=== PATIENT | female | born 1945 | race African-American/Black ===

== ENCOUNTER 2017-07-24 12:20 | Emergency (ER) | payer MEDICARE, OTHER ==
[~2017-07-24] VITALS: Ht 160 cm; Wt 77.1 kg
[2017-07-24 13:00] VITALS: BP 149/98
[2017-07-24 13:09] LABS: BASOPHILS % (AUTO) 1.6 % (0.0-2.0); EOSINOPHILS % (AUTO) 0.2 % (0.0-3.0); HEMOGLOBIN 12.6 G/DL (12.0-16.0); LYMPHOCYTES % (AUTO) 12.4 % (20.0-45.0); MEAN CORPUSCULAR VOLUME 84 FL (80-99); MONOCYTES % (AUTO) 7.1 % (1.0-10.0); NEUTROPHILS % (AUTO) 78.6 % (45.0-75.0); PLATELET COUNT 274 K/UL (150-450); RED BLOOD COUNT 4.52 M/UL (4.20-5.40); RED CELL DISTRIBUTION WIDTH 12.9 % (11.6-14.8); WHITE BLOOD COUNT 5.1 K/UL (4.8-10.8)
[2017-07-24] MEDS ORDERED: REVATIO20 MG ORAL (13:10)
[2017-07-24] MEDS ORDERED: AMLODIPINE BESY10 MG ORAL (13:10)
[2017-07-24] MEDS ORDERED: FUROSEMIDE20 M1 ORAL (13:10)
[2017-07-24] MEDS ORDERED: DEXILANT60 MG ORAL (13:10)
[2017-07-24] MEDS ORDERED: TRAMADOL HCL50 MG ORAL (13:10)
[2017-07-24] MEDS ORDERED: AMITRIPTYLINE25 MG ORAL (13:10)
[2017-07-24] MEDS ORDERED: ATORVASTATIN CA20 MG ORAL (13:10)
[2017-07-24] MEDS ORDERED: BACLOFEN10 MG ORAL (13:10)
[2017-07-24] MEDS ORDERED: GABAPENTIN400 MG ORAL (13:10)
[2017-07-24] MEDS ORDERED: LORATADINE10 M1 PO (13:10)
[2017-07-24] MEDS ORDERED: LISINOPRIL10 MG ORAL (13:10)
[2017-07-24 13:20] LABS: ANION GAP 9 mmol/L (5-15); BLOOD UREA NITROGEN 13 mg/dL (7-18); CALCIUM 9.3 MG/DL (8.5-10.1); CARBON DIOXIDE 28 MMOL/L (21-32); CHLORIDE 102 MMOL/L (98-107); CREATININE 0.9 MG/DL (0.55-1.30); POTASSIUM 4.1 MMOL/L (3.5-5.1); SODIUM 139 MMOL/L (136-145)
[2017-07-24 13:23] LABS: APPEARANCE,URINE CLEAR; BILIRUBIN, URINE NEGATIVE (NEGATIVE); COLOR,URINE PALE YELLOW; GLUCOSE, URINE (UA) NEGATIVE (NEGATIVE); KETONES,URINE NEGATIVE (NEGATIVE); LEUKOCYTE ESTERASE ,URINE NEGATIVE (NEGATIVE); NITRITE,URINE NEGATIVE (NEGATIVE); PH,URINE 6 (4.5-8.0); PROTEIN,URINE NEGATIVE (NEGATIVE); UROBILINOGEN,URINE NORMAL MG/DL (0.0-1.0)
[2017-07-24 13:35] LABS: ALANINE AMINOTRANSFERASE 31 U/L (12-78); ALBUMIN 3.6 G/DL (3.4-5.0); ALBUMIN/GLOBULIN RATIO 0.8 (1.0-2.7); ALKALINE PHOSPHATASE 124 U/L (46-116); ASPARTATE AMINO TRANSFERASE 29 U/L (15-37); BILIRUBIN,TOTAL 0.3 MG/DL (0.2-1.0); CKMB 1.2 NG/ML (0.0-3.6); CREATINE KINASE 379 U/L (26-308)
--- NOTE | 2017-07-24 13:49 | Diagnostic Imaging Report ---
EXAM: XR Chest, 1 View CLINICAL HISTORY: PAIN TECHNIQUE: Frontal view of the chest. COMPARISON: No relevant prior studies available. FINDINGS: Lungs: Mildly decreased lung volumes, likely related to shallow inspiration. Mild pulmonary vascular congestion. Pleural space: Unremarkable. No pneumothorax. Heart: The heart is borderline enlarged. Mediastinum: Midline retrocardiac/inferior mediastinal opacity. Bones/joints: Unremarkable. Tubes, lines and devices: EKG leads overlie the thorax. IMPRESSION: 1. Decreased lung volumes, likely related to shallow inspiration. 2. Mild pulmonary vascular congestion. 3. The heart is borderline enlarged. 4. Midline retrocardiac opacity. This is nonspecific and may represent a hiatal hernia.
--- NOTE | 2017-07-24 15:19 | Emergency Room Report ---
History of Present Illness General Chief Complaint: General Complaint Source: Patient Present Illness HPI Patient complains of generalized weakness. She states that she woke up this morning with the generalized weakness. She states that yesterday she noted she was having her back pain and was having sciatica-like symptoms down her right leg. She took multiple medications to include baclofen, tramadol, amitriptyline , and other pain medications. She states that this morning she felt a cramp in her right leg. She states that she has been fatigued and weak ever since. She states she has chronic back pain and sciatica and has had difficulty controlling her pain. She also has a hiatal hernia and is planned to undergo surgical repair of this in the future. She denies chest pain or shortness of breath. She denies fever or chills. She denies abdominal pain. She denies dysuria or hematuria. She has no other complaints. Allergies: Coded Allergies: No Known Allergies (Unverified , 07/24/17) Patient History Past Medical History: see triage record, DM, HTN, other - hiatal hernia Social History: Denies: smoking, alcohol use, drug use Reviewed Nursing Documentation: PMH: Agreed; PSxH: Agreed Nursing Documentation-PMH Hx Hypertension: Yes Hx Diabetes: Yes Review of Systems All Other Systems: negative except mentioned in HPI Physical Exam Vital Signs Date Time Temp Pulse Resp B/P (MAP) Pulse Ox O2 Delivery O2 Flow Rate FiO2 07/24/17 12:22 97.8 82 16 149/98 98 Room Air 97.9 Sp02 EP Interpretation: reviewed, normal General Appearance: no apparent distress, alert, GCS 15, non-toxic Head: normocephalic, atraumatic Eyes: bilateral eye normal inspection, bilateral eye PERRL ENT: hearing grossly normal, normal pharynx, no angioedema, normal voice Neck: full range of motion, supple/symm/no masses Respiratory: chest non-tender, lungs clear, normal breath sounds, speaking full sentences Cardiovascular #1: regular rate, rhythm, no edema Gastrointestinal: normal bowel sounds, non tender, soft, non-distended, no guarding, no rebound Rectal: deferred Musculoskeletal: back normal, normal range of motion, other - TTP L. lower paraspinal m. Neurologic: alert, oriented x3, responsive, motor strength/tone normal, sensory intact, speech normal Psychiatric: judgement/insight normal, memory normal, mood/affect normal, no suicidal/homicidal ideation Skin: normal color, no rash, warm/dry, well hydrated Medical Decision Making Diagnostic Impression: Primary Impression: Generalized weakness Additional Impressions: Chronic back pain Medication side effects ER Course This patient has nonspecific complaints. She took a cocktail of medications prior to bed yesterday for her chronic back pain. This included narcotics, muscle relaxants, gabapentin, amitriptyline. I suspect that this patient is having side effects of the cocktail of medications that she took last night. I did obtain basic labs to include CBC, CMP and urinalysis. There are no significant abnormalities. Overall, the patient is well-appearing and normal examination. I did give the patient a Lidoderm patch and will prescribe this for her as an attempt at helping this patient better manage her chronic back pain. She is also instructed to obtain physical therapy consultation from her primary care physician. At this time, I did not identify an emergency medical condition. Patient was given close return precautions and follow-up instructions. EKG Diagnostic Results Rate: normal Rhythm: NSR ST Segments: no acute changes Rhythm Strip Diag. Results EP Interpretation: yes Rate: 80's Rhythm: NSR, no PVC's, no ectopy Chest X-Ray Diagnostic Results Chest X-Ray Diagnostic Results : Chest X-Ray Ordered: Yes # of Views/Limited/Complete: 1 View Indication: Other EP Interpretation: Yes Interpretation: no consolidation, no effusion, no pneumothorax, no acute cardiopulmonary disease, other - cardiomegaly, hiatal hernia Impression: No acute disease Last Vital Signs Date Time Temp Pulse Resp B/P (MAP) Pulse Ox O2 Delivery O2 Flow Rate FiO2 07/24/17 13:00 97.9 16 149/98 98 Room Air 97.9 07/24/17 12:22 82 Status: improved Disposition: HOME, SELF-CARE Condition: Improved Referrals: NOT CHOSEN SERGIO/,REFERRING (PCP) ALVINA TATUM D.O. July 24, 2017 15:19
[2017-07-24] MEDS ORDERED: LIDODERM700 M1 TOPIC (15:20)
[2017-07-24 16:00] VITALS: BP 132/90
--- NOTE | 2017-07-28 14:57 | Cardiology Report ---
APPROVED REPORT EKG Measurement Heart [id number] [id number] Normal sinus rhythm with sinus arrhythmia Moderate voltage criteria for LVH, may be normal variant ST elevation, consider early repolarization, pericarditis, or injury Abnormal ECG
== END 2017-07-24 16:00 | disposition home or self-care (01) ==
LOC: EDBD 12:20 → EMR 13:32
DX: R53.1 Weakness (principal); G89.29 Other chronic pain; K44.9 Diaphragmatic hernia without obstruction or gangrene; I10 Essential (primary) hypertension; E11.9 Type 2 diabetes mellitus without complications
CPT/HCPCS: 36415; 71045; 80053; 81003; 82550; 82553; 82962; 84484; 85025; 85610; 85730; 93005; 96374; 99283

== ENCOUNTER 2018-08-24 21:43 | Emergency (ER) | payer MEDICARE, OTHER ==
[~2018-08-24] VITALS: Ht 157.5 cm; Wt 78.5 kg
[~2018-08-24 21:43] MED LIST: AMITRIPTYLINE25 MG ORAL; AMLODIPINE BESY10 MG ORAL; ATORVASTATIN CA20 MG ORAL; BACLOFEN10 MG ORAL; DEXILANT60 MG ORAL; FUROSEMIDE20 M1 ORAL; GABAPENTIN400 MG ORAL; LIDODERM700 M1 TOPIC; LISINOPRIL10 MG ORAL; LORATADINE10 M1 PO; REVATIO20 MG ORAL; TRAMADOL HCL50 MG ORAL
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
[2018-08-24] MEDS ORDERED: Ketorolac 30mg Inj IV ONE (22:45)
[2018-08-24 23:14] LABS: BASOPHILS % (AUTO) 1.4 % (0.0-2.0); HEMATOCRIT 35.2 % (37.0-47.0); HEMOGLOBIN 11.6 G/DL (12.0-16.0); MEAN CORPUSCULAR VOLUME 83 FL (80-99); MONOCYTES % (AUTO) 8.6 % (1.0-10.0); NEUTROPHILS % (AUTO) 55.1 % (45.0-75.0); PLATELET COUNT 258 K/UL (150-450); RED BLOOD COUNT 4.25 M/UL (4.20-5.40); RED CELL DISTRIBUTION WIDTH 11.5 % (11.6-14.8); WHITE BLOOD COUNT 5.9 K/UL (4.8-10.8)
[2018-08-24 23:27] LABS: ANION GAP 9 mmol/L (5-15); BLOOD UREA NITROGEN 15 mg/dL (7-18); CALCIUM 8.8 MG/DL (8.5-10.1); CARBON DIOXIDE 27 MMOL/L (21-32); CHLORIDE 108 MMOL/L (98-107); CREATININE 0.8 MG/DL (0.55-1.30); POTASSIUM 3.6 MMOL/L (3.5-5.1); SODIUM 144 MMOL/L (136-145)
[2018-08-24 23:30] VITALS: BP 124/79
[2018-08-24 23:31] LABS: ALANINE AMINOTRANSFERASE 28 U/L (12-78); ALBUMIN/GLOBULIN RATIO 0.8 (1.0-2.7); ALKALINE PHOSPHATASE 101 U/L (46-116); ASPARTATE AMINO TRANSFERASE 23 U/L (15-37); BILIRUBIN,TOTAL 0.1 MG/DL (0.2-1.0)
[2018-08-25] MEDS ORDERED: ALBUTEROL SULF8.5 GM INH (00:04)
[2018-08-25] MEDS ORDERED: TRAMADOL HCL50 MG ORAL (00:04)
[2018-08-25] MEDS ORDERED: VOLTAREN100 G1 TP (00:04)
[2018-08-25 00:25] VITALS: BP 124/79
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
--- NOTE | 2018-08-25 15:24 | Cardiology Report ---
APPROVED REPORT EKG Measurement Heart [id number] [id number] Normal sinus rhythm Moderate voltage criteria for LVH, may be normal variant Borderline ECG
== END 2018-08-25 00:39 | disposition home or self-care (01) ==
LOC: EMR 22:15
DX: M54.2 Cervicalgia (principal); R07.9 Chest pain, unspecified; E11.9 Type 2 diabetes mellitus without complications; I10 Essential (primary) hypertension; M79.602 Pain in left arm
CPT/HCPCS: 36415; 70450; 71250; 72125; 74176; 80053; 84484; 85025; 93005; 96374; 99284; J1885

== ENCOUNTER 2018-12-19 11:23 | Inpatient (IN) | payer MEDICARE, OTHER ==
[~2018-12-19] VITALS: Ht 157.5 cm; Wt 82.1 kg
[~2018-12-19 11:23] MED LIST changes: +ALBUTEROL SULF8.5 GM INH; +VOLTAREN100 G1 TP
--- NOTE | 2018-12-19 11:31 | NUR ---
ED Nurse Note: pt presents to ED s/p fall about 30 min [employer]. pt reports feeling dizzy and nauseated before feeling her leg "go limp." her cousin was with her at the time and helped her to the ground, she denies sustaining any injuries or hitting her head but did note that she briefly "blacked out." Pt takes lopressor 20 mg for HTN which she did take this AM. Pt states that 2 days ago she did a sleep study and last night experienced some tongue swelling but that it did not obsturct her breathing. pt was able to transfer from wheelchair to bed with some assistance and denies any pain right now, just that she "feels sick."
[2018-12-19 12:00] VITALS: BP 136/77
[2018-12-19 12:07] LABS: EOSINOPHILS % (AUTO) 0.4 % (0.0-3.0); HEMATOCRIT 43.4 % (37.0-47.0); HEMOGLOBIN 14.2 G/DL (12.0-16.0); LYMPHOCYTES % (AUTO) 7.5 % (20.0-45.0); MEAN CORPUSCULAR VOLUME 87 FL (80-99); MONOCYTES % (AUTO) 6.4 % (1.0-10.0); NEUTROPHILS % (AUTO) 84.7 % (45.0-75.0); PLATELET COUNT 268 K/UL (150-450); RED BLOOD COUNT 5.01 M/UL (4.20-5.40); RED CELL DISTRIBUTION WIDTH 12.1 % (11.6-14.8); WHITE BLOOD COUNT 6.3 K/UL (4.8-10.8)
--- NOTE | 2018-12-19 12:08 | NUR ---
ED Nurse Note: nurse was able to assist pt onto bed beckwith. pt was able to void 100 mL of yellow urine
[2018-12-19 12:16] LABS: ANION GAP 5 mmol/L (5-15); BLOOD UREA NITROGEN 9 mg/dL (7-18); CALCIUM 8.6 MG/DL (8.5-10.1); CARBON DIOXIDE 30 MMOL/L (21-32); CHLORIDE 105 MMOL/L (98-107); CREATININE 0.8 MG/DL (0.55-1.30); SODIUM 140 MMOL/L (136-145)
[2018-12-19 12:32] LABS: ALANINE AMINOTRANSFERASE 33 U/L (12-78); ALBUMIN 3.5 G/DL (3.4-5.0); ALBUMIN/GLOBULIN RATIO 0.7 (1.0-2.7); ALKALINE PHOSPHATASE 108 U/L (46-116); ASPARTATE AMINO TRANSFERASE 29 U/L (15-37); BILIRUBIN,TOTAL 0.5 MG/DL (0.2-1.0); CKMB 3.3 NG/ML (0.0-3.6); CREATINE KINASE 355 U/L (26-308)
[2018-12-19 13:00] LABS: APPEARANCE,URINE CLEAR; BILIRUBIN, URINE NEGATIVE (NEGATIVE); COLOR,URINE PALE YELLOW; GLUCOSE, URINE (UA) NEGATIVE (NEGATIVE); KETONES,URINE NEGATIVE (NEGATIVE); LEUKOCYTE ESTERASE ,URINE NEGATIVE (NEGATIVE); NITRITE,URINE NEGATIVE (NEGATIVE); PH,URINE 7 (4.5-8.0); PROTEIN,URINE NEGATIVE (NEGATIVE); UROBILINOGEN,URINE NORMAL MG/DL (0.0-1.0)
--- NOTE | 2018-12-19 13:16 | NUR ---
ED Nurse Note: Pt used bedpan x 3, light deepak urine noted. Pt has no difficulty urinating. Sister at bedside. No sign of acute distress.
[2018-12-19 13:38] VITALS: BP 149/75
--- NOTE | 2018-12-19 13:39 | Emergency Room Report ---
History of Present Illness General Chief Complaint: Multiple Trauma/Fall Source: Patient Present Illness HPI Patient presents with syncopal episode Patient was standing up to go to latter-day when she felt lightheaded dizzy and essentially had a full syncopal episode Denies any headache or focal weakness denies any chest pain patient has had a recent sleep study Otherwise denies any change in medications denies any visual changes Denies any recent travel or trauma Allergies: Coded Allergies: No Known Allergies (Unverified , 07/24/17) Patient History Past Medical History: see triage record Last Menstrual Period: n/a Reviewed Nursing Documentation: PMH: Agreed; PSxH: Agreed Nursing Documentation-PMH Hx Hypertension: Yes - HTN Hx Diabetes: Yes - Type 2 Review of Systems All Other Systems: negative except mentioned in HPI Physical Exam Vital Signs Date Time Temp Pulse Resp B/P (MAP) Pulse Ox O2 Delivery O2 Flow Rate FiO2 12/19/18 11:29 98.2 70 18 166/87 (113) 100 Room Air Sp02 EP Interpretation: reviewed, normal General Appearance: well appearing, no apparent distress Head: normocephalic, atraumatic Eyes: bilateral eye PERRL, bilateral eye EOMI ENT: hearing grossly normal, normal pharynx, TMs + canals normal, uvula midline Neck: full range of motion, supple, no meningismus, no bony tend Respiratory: lungs clear, normal breath sounds, no rhonchi, no respiratory distress, no retraction, no accessory muscle use Cardiovascular #1: normal peripheral pulses, regular rate, rhythm, no edema, no gallop, no JVD, no murmur Gastrointestinal: normal bowel sounds, non tender, soft, no mass, no organomegaly, non-distended, no guarding, no hernia, no pulsatile mass, no rebound Genitourinary: no CVA tenderness Musculoskeletal: normal inspection Neurologic: oriented x3, responsive, historian dramatic arts III-XII nml as tested, motor strength/ tone normal, sensory intact Psychiatric: mood/affect normal Lymphatic: normal inspection, no adenopathy Medical Decision Making Diagnostic Impression: Primary Impression: Syncope ER Course Patient is a fairly complex patient with multiple differential to consideration including but not limited to cardiac cardiopulmonary and vascular emergencies Patient's blood work at this time is at baseline levels EKG shows nonspecific findings otherwise no obvious ST elevations Patient does not meet criteria for a CT imaging of the brain Is admitted for further inpatient care Labs Test 12/19/18 11:55 12/19/18 12:50 White Blood Count 6.3 K/UL (4.8-10.8) Red Blood Count 5.01 M/UL (4.20-5.40) Hemoglobin 14.2 G/DL (12.0-16.0) Hematocrit 43.4 % (37.0-47.0) Mean Corpuscular Volume 87 FL (80-99) Mean Corpuscular Hemoglobin 28.4 PG (27.0-31.0) Mean Corpuscular Hemoglobin Concent 32.8 G/DL (32.0-36.0) Red Cell Distribution Width 12.1 % (11.6-14.8) Platelet Count 268 K/UL (150-450) Mean Platelet Volume 6.1 FL (6.5-10.1) Neutrophils (%) (Auto) 84.7 % (45.0-75.0) Lymphocytes (%) (Auto) 7.5 % (20.0-45.0) Monocytes (%) (Auto) 6.4 % (1.0-10.0) Eosinophils (%) (Auto) 0.4 % (0.0-3.0) Basophils (%) (Auto) 1.0 % (0.0-2.0) Sodium Level 140 MMOL/L (136-145) Potassium Level 4.0 MMOL/L (3.5-5.1) Chloride Level 105 MMOL/L (98-107) Carbon Dioxide Level 30 MMOL/L (21-32) Anion Gap 5 mmol/L (5-15) Blood Urea Nitrogen 9 mg/dL (7-18) Creatinine 0.8 MG/DL (0.55-1.30) Estimat Glomerular Filtration Rate mL/min (>60) Glucose Level 146 MG/DL (74-106) Calcium Level 8.6 MG/DL (8.5-10.1) Total Bilirubin 0.5 MG/DL (0.2-1.0) Aspartate Amino Transf (AST/SGOT) 29 U/L (15-37) Alanine Aminotransferase (ALT/SGPT) 33 U/L (12-78) Alkaline Phosphatase 108 U/L (46-116) Total Creatine Kinase 355 U/L (26-308) Creatine Kinase MB 3.3 NG/ML (0.0-3.6) Creatine Kinase MB Relative Index 0.9 Troponin I 0.000 ng/mL (0.000-0.056) Total Protein 8.4 G/DL (6.4-8.2) Albumin 3.5 G/DL (3.4-5.0) Globulin 4.9 g/dL Albumin/Globulin Ratio 0.7 (1.0-2.7) Lipase 189 U/L (73-393) Urine Color Pale yellow Urine Appearance Clear Urine pH 7 (4.5-8.0) Urine Specific [place] 1.005 (1.005-1.035) Urine Protein Negative (NEGATIVE) Urine Glucose (UA) Negative (NEGATIVE) Urine Ketones Negative (NEGATIVE) Urine Blood 2+ (NEGATIVE) Urine Nitrite Negative (NEGATIVE) Urine Bilirubin Negative (NEGATIVE) Urine Urobilinogen Normal MG/DL (0.0-1.0) Urine Leukocyte Esterase Negative (NEGATIVE) Urine RBC 0-2 /HPF (0 - 2) Urine WBC 0 /HPF (0 - 2) Urine Squamous Epithelial Cells None /LPF (NONE/OCC) Urine Bacteria None /HPF (NONE) EKG Diagnostic Results Rate: normal Rhythm: NSR ST Segments: other - Nonspecific ST and T wave changes Rhythm Strip Diag. Results EP Interpretation: yes Rate: 77 Rhythm: NSR, no PVC's, no ectopy Chest X-Ray Diagnostic Results Chest X-Ray Diagnostic Results : Chest X-Ray Ordered: Yes # of Views/Limited/Complete: 1 View Indication: Chest Pain EP Interpretation: Yes Interpretation: no consolidation, no effusion, no pneumothorax Impression: No acute disease Electronically Signed by: Isabella Domínguez DO Last Vital Signs Date Time Temp Pulse Resp B/P (MAP) Pulse Ox O2 Delivery O2 Flow Rate FiO2 12/19/18 12:00 98.2 67 15 136/77 95 Room Air Status: improved Disposition: ADMITTED INPATIENT Condition: Improved Referrals: NOT CHOSEN IPA/,REFERRING (PCP) Isabella Domínguez DO Dec 19, 2018 13:39
[2018-12-19 14:00] VITALS: BP 149/81
--- NOTE | 2018-12-19 14:10 | NUR ---
ED Nurse Note: pt report given to Betzaida MCNULTY. Bed that pt will be admitted to is not yet ready. RN will call back when ready for pt to be transported upstairs to bed 243-1.
[2018-12-19] MEDS ORDERED: traMADol 50mg tab ORAL PRN (14:15)
[2018-12-19] MEDS ORDERED: Miralax 17gm pkt ORAL PRN (14:15)
[2018-12-19] MEDS ORDERED: Nitroglycerin Subl 0.4mg tab SL PRN (14:15)
[2018-12-19] MEDS ORDERED: Albuterol 90mcg Inhaler 8gm INH PRN (14:15)
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
[2018-12-19] MEDS: Aspirin Baby 81mg ORAL SCH (15:50)
[2018-12-19] MEDS: traMADol 50mg tab ORAL SCH (15:53)
[2018-12-19 16:51] VITALS: BP 144/79
[2018-12-19] MEDS: Revatio 20mg tab ORAL SCH (17:36)
[2018-12-19] MEDS: NovoLOG Insulin Flexpen SUBQ SCH ×2 (17:37→20:55)
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
--- NOTE | 2018-12-19 19:14 | NUR ---
HAND-OFF: Report given to RIVER MCNULTY.
--- NOTE | 2018-12-19 19:15 | NUR ---
NURSE NOTES: Received report from HAMLET Huston. Patient is alert and oriented x4. No acute distress/SOB noted. Patient denies any pain/discomfort at this time. She is on room air. Daughter is at the bedside. Will continue plan of care.
[2018-12-19] MEDS: Heparin 5000 units/ml inj SUBQ SCH (20:40)
[2018-12-19] MEDS ORDERED: Atorvastatin 20mg tab ORAL SCH (21:00)
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
--- NOTE | 2018-12-19 22:11 | NUR ---
NURSE NOTES: Received report from HAMLET Ferguson. Patient was transferred from SDU to telemetry without any incident. Tele box on, SR on the monitor. Vital signs stable. No skin issues. Belongings list checked with transferring RN. Patient is awake, resting comfortably. A/Ox4. Denies pain at this time. No signs of acute cardiorespiratory distress noted. Checked IV site and flushed. No erythema, bleeding or infiltration noted. Able to make needs known. Ambulates with assistance. SCDs placed on bilateral legs. Bed at lowest position, brakes on, siderailsx3. Call light within reach. Will continue to monitor.
[2018-12-20] MEDS: traMADol 50mg tab ORAL SCH ×4 (01:00→18:06)
--- NOTE | 2018-12-20 02:45 | Consultation ---
DATE OF CONSULTATION: 12/19/2018 CARDIOLOGY CONSULTATION CONSULTING PHYSICIAN: Maurilio Cormier M.D. REFERRING PHYSICIAN: Silver Mei M.D. REASON FOR CONSULTATION: Syncope. HISTORY OF PRESENT ILLNESS: This is a 73-year-old female. She has had difficulty with swallowing for the past few months. Solid food gets stuck in her throat, but she has been able to eat a normal amount. Last week, she had an endoscopy although she does not know the results yet. This morning, she got up to go to quaker. She did not eat that morning, but that is not unusual for her. She felt somewhat weak and lightheaded and when she got up to get dressed, she apparently passed out completely. She called a friend after she woke up and did not have any sequelae noted thereafter. The patient did have some nausea and vomiting earlier this morning. States that that may have precipitated her dizziness. PAST MEDICAL HISTORY: Includes hypertension, type 2 diabetes mellitus, and history of pulmonary hypertension. ALLERGIES: None known. MEDICATIONS: Medications prior to admission, reviewed and reconciled. FAMILY HISTORY: Noncontributory. SOCIAL HISTORY: Negative for smoking, alcohol, or substance abuse. REVIEW OF SYSTEMS: A 10-point review of systems performed. All systems negative other than noted above. PHYSICAL EXAMINATION: VITAL SIGNS: Initial blood pressure 166/87, heart rate 70, respiratory rate 18, and afebrile. Presently, blood pressure 144/79, heart rate 68, respiratory rate 20. Monitored rhythm sinus. GENERAL: Well-appearing. HEENT: Conjunctivae pink. Sclerae are anicteric. Oropharynx clear. Mucous membranes moist. NECK: Supple. Jugular venous pressure normal. No adenopathy. LUNGS: Clear. CARDIAC: Regular rhythm and rate. Normal S1, S2 with no murmur. ABDOMEN: Soft and nontender. There is no guarding or rebound. EXTREMITIES: Without edema. NEUROLOGIC: Reveals no focal deficits. LABORATORY DATA: An echocardiogram revealed normal ejection fraction, mild concentric hypertrophy, mild tricuspid regurgitation, normal PA systolic pressure estimate. EKG revealed sinus rhythm with nonspecific ST changes. Labs notable for white count 6.3, hemoglobin 14.2. Chemistry panel within normal limits. Glucose 146. IMPRESSION: 1. Vasovagally mediated syncopal episode, possibly precipitated by nausea and vomiting earlier in the morning. Consideration for orthostatic component due to her medications such as Revatio must be considered as well. Low suspicion for cardiac arrhythmia or acute cerebrovascular event. 2. Hypertensive heart disease. 3. History of pulmonary hypertension although not presently noted on echocardiogram. 4. Dysphagia to solid foods. 5. History of type 2 diabetes mellitus. PLAN: 1. Cardiac monitoring. 2. Check orthostatic blood pressures. 3. Contact inner tube inserter tomorrow to obtain results of recent GI workup. 4. We will follow and make further recommendations based on preliminary results noted above. Maurilio Cormier M.D. DR: Rosana JOB#: [id number] CC:
--- NOTE | 2018-12-20 03:20 | NUR ---
NURSE NOTES: Resting throughout the night. No significant change of condition. Will continue to monitor.
[2018-12-20] MEDS: NovoLOG Insulin Flexpen SUBQ SCH ×3 (05:30→17:21)
--- NOTE | 2018-12-20 07:05 | NUR ---
NURSE NOTES: Received report from HAMLET Wilson. Patient is awake, resting comfortably. A/Ox4. Denies pain at this time. No signs of acute cardiorespiratory distress noted. Patient is breathing even and unlabored. Checked IV site and flushed. No erythema, bleeding or infiltration noted. Able to make needs known. Ambulates with assistance. SCDs placed on bilateral legs. Bed at lowest position, brakes on, siderailsx3. Call light within reach. Will continue to monitor.
--- NOTE | 2018-12-20 07:38 | NUR ---
HAND-OFF: Report given to HAMLET Arvizu. Plan of care endorsed.
[2018-12-20 07:47] LABS: BASOPHILS % (AUTO) 1.2 % (0.0-2.0); EOSINOPHILS % (AUTO) 3.1 % (0.0-3.0); HEMATOCRIT 38.6 % (37.0-47.0); HEMOGLOBIN 12.8 G/DL (12.0-16.0); MEAN CORPUSCULAR VOLUME 87 FL (80-99); MONOCYTES % (AUTO) 13.2 % (1.0-10.0); NEUTROPHILS % (AUTO) 49.6 % (45.0-75.0); PLATELET COUNT 268 K/UL (150-450); RED BLOOD COUNT 4.46 M/UL (4.20-5.40); RED CELL DISTRIBUTION WIDTH 12.1 % (11.6-14.8); WHITE BLOOD COUNT 4.1 K/UL (4.8-10.8)
[2018-12-20 08:00] VITALS: BP 133/86
[2018-12-20 08:18] LABS: ANION GAP 2 mmol/L (5-15); BLOOD UREA NITROGEN 7 mg/dL (7-18); CALCIUM 8.6 MG/DL (8.5-10.1); CARBON DIOXIDE 28 MMOL/L (21-32); CHLORIDE 105 MMOL/L (98-107); CHOLESTEROL 132 MG/DL (< 200); CREATININE 0.9 MG/DL (0.55-1.30); HDL CHOLESTEROL 42 MG/DL (40-60); POTASSIUM 3.2 MMOL/L (3.5-5.1); SODIUM 135 MMOL/L (136-145); TRIGLYCERIDES 87 MG/DL (30-150)
[2018-12-20] MEDS: Aspirin Baby 81mg ORAL SCH (08:46)
[2018-12-20] MEDS: Heparin 5000 units/ml inj SUBQ SCH (08:56)
[2018-12-20] MEDS: Revatio 20mg tab ORAL SCH (09:00)
[2018-12-20] MEDS ORDERED: Lisinopril 10mg tab ORAL SCH (09:00)
[2018-12-20] MEDS ORDERED: Diclofenac 1% Gel 100gm TOPIC SCH ×2 (09:00)
--- NOTE | 2018-12-20 10:28 | NUR ---
NURSE NOTES: Paged Dr. Mei about potassium 3.2. Awaiting orders.
--- NOTE | 2018-12-20 10:29 | Diagnostic Imaging Report ---
APPROVED REPORT CPT Code: 08327 Vascular Symptoms Syncope Doppler Spectral Velocity Analysis RightLeft BILATERAL: CCA/BULB - Imaging reveals irregular, minimal plaque in right (5-10%) bulb the internal and external carotid arteries. The Doppler spectral flow analysis is within normal limits throughout the internal and external carotid arteries. SUBCLAVIAN/VERTEBRAL - The subclavian and vertebral arteries are patent, without evidence of stenosis or steal.
[2018-12-20 12:00] VITALS: BP 143/87
[2018-12-20] MEDS ORDERED: Revatio 20mg tab ORAL SCH (15:00)
--- NOTE | 2018-12-20 16:10 | Diagnostic Imaging Report ---
Indication: Chest pain Technique: One view of the chest Comparison: 07/24/2017 Findings: What is presumably bowel contrast is seen in left upper quadrant colonic diverticula. The lungs and pleural spaces are grossly clear. The heart size is normal. Impression: No definite acute process
--- NOTE | 2018-12-20 18:40 | NUR ---
Home Discharge: Patient is being discharged from medical care. Awake, alert and oriented x4. Patient signed discharge papers and belonging paper. Daughter at bedside. Patient received prescription from Dr. Mei. All medical devices such as IV, bus driver/monitor, and ID band were removed. Patient left on wheel chair with all personal belongings to private vehicle driven by daughter.
--- NOTE | 2018-12-21 02:45 | Progress Note ---
DATE: 12/20/2018 CARDIOLOGY PROGRESS NOTE SUBJECTIVE: No dizziness. No lightheadedness. No loss of consciousness. Monitored rhythm, sinus. OBJECTIVE: VITAL SIGNS: Blood pressure 143/87, heart rate 65, respiratory rate 18. LUNGS: Clear. CARDIAC: Regular. ABDOMEN: Soft. EXTREMITIES: No edema. LABORATORY AND DIAGNOSTIC DATA: GI workup reviewed from recent workup at [facility]. The patient has had a prior bariatric intervention and now has ring . Labs, white count 4.1, hemoglobin 12.8. Potassium 3.2. Troponin negative. LDL cholesterol 85. TSH 0.72. IMPRESSION: 1. Vasovagally mediated orthostatic syncope. 2. Hypokalemia. 3. Hypertension, controlled. PLAN: 1. Replace potassium. 2. Continue current cardiovascular medications. 3. Stable for outpatient followup from cardiovascular standpoint. 4. No additional cardiovascular interventions or therapies are presently indicated. Maurilio Cormier M.D. DR: JOSHUA JOB#: [id number] CC:
--- NOTE | 2018-12-21 04:30 | History and Physical Report ---
DATE OF ADMISSION: 12/19/2018 PERTINENT HISTORY: The patient admitted for syncope. HISTORY OF PRESENT ILLNESS: The patient is a 73-year-old lady with with history of gastroesophageal reflux status post laparoscopic hiatal hernia repair, Kitty gastroplasty, and Toupet fundoplication in January 2018 at [facility]. She had a recent upper GI, stricture, and EGD with dilation apparently was to be scheduled. She had a recent swallow study at [facility] which is reviewed and on the chart. 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 ALLERGIES: None known. HOME MEDICATIONS: Include albuterol inhalation, amitriptyline, amlodipine, atorvastatin, baclofen, Dexilant, Voltaren gel, furosemide, gabapentin, lidocaine patch, lisinopril, loratadine, Revatio, tramadol. HABITS: She is a nondrinker and nonsmoker. PAST SURGICAL HISTORY: Hiatal hernia, left arm possibly ulnar nerve repair, hysterectomy, cataracts bilaterally. SYSTEM REVIEW: HEAD, EYES, EARS, NOSE, AND THROAT: Vision corrective with eyeglasses. Hearing is good. ENDOCRINE: Obesity and diabetes as above. PULMONARY: History of taking Revatio, apparently mild pulmonary hypertension on echo in the past. CARDIAC: See history of present illness. GASTROINTESTINAL: See history of present illness. She had choking on her food intermittently. GENITOURINARY: No dysuria or hematuria. NEUROLOGIC: No CVA or seizures. . PHYSICAL EXAMINATION: GENERAL: The patient is an elderly patient, alert, obese lady, in no acute distress. VITAL SIGNS: Temperature 981, pulse 81, respirations 18, blood pressure 143/87. Earlier orthostatic blood pressures were negative. HEAD, EYES, EARS, NOSE, AND THROAT: Sclerae are nonicteric. Ocular motions intact in all directions. Oral mucosa moist. NECK: No adenopathy. LUNGS: Clear. HEART: Regular rhythm. I hear no murmur. ABDOMEN: Obese and soft. No organomegaly. EXTREMITIES: No edema, cyanosis, or clubbing. There are degenerative changes in the knees and hands. NEUROLOGIC: She is alert and oriented with clear speech. Cranial nerves are intact. No focal weakness. IMPRESSION: 1. Syncope provoked by choking sensation and this is likely vasovagal episode secondary to her underlying hiatal hernia, reflux, and some stenosis that are noted in the past. 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 2. Obesity 3. Diabetes. PLAN: 1. The patient will be observed on telemetry for any arrhythmia. 2. Check orthostatics, if negative we will discharge her. Silver Mei M.D. DR: [place] JOB#: [id number] CC:
--- NOTE | 2018-12-21 13:15 | Discharge Summary ---
DATE OF ADMISSION: 12/19/2018 DATE OF DISCHARGE: 12/20/2018 PERTINENT HISTORY: The patient had an episode of syncope after sensation of choking. PERTINENT PHYSICAL FINDINGS: See the admission History and Physical, no changes. COURSE IN THE HOSPITAL: The patient was observed on telemetry. No arrhythmias. No orthostatic hypotension. She had a mild drop in potassium from 4 to 3.2, was given KCl replacement. Troponins were negative. She had no cardiac symptoms. In retrospect, she had vasovagal syncope, post-sensation of choking. Exam was stable and she was discharged home in stable condition. FINAL DIAGNOSES: 1. Syncope likely vasovagal. 2. History of surgery for hiatal hernia with fundoplication and recurrence of heartburn and dysphagia. 3. Hypertension. 4. Diabetes. 5. On medications for pulmonary hypertension. 6. Obesity. 7. Obstructive sleep apnea. DISCHARGE DISPOSITION: Home on her prior to admission medications. I have discussed with her eating slowly and following up on all of the above medical problems. She will continue her home medications and follow up closely with her prior to admission medications and prior doctors and she will see Dr. Mei in the office should she wished to do so. Silver Mei M.D. : KEIKO JOB#: [id number] CC:
--- NOTE | 2018-12-21 13:26 | Cardiology Report ---
APPROVED REPORT EXAM: Two-dimensional and M-mode echocardiogram with Doppler and color Doppler. INDICATION Syncope M-Mode DIMENSIONS IVSd1.4 (0.7-1.1cm)Left Atrium (MM)2.3 (1.6-4.0cm) LVDd5.4 (3.5-5.6cm)Aortic Root2.7 (2.0-3.7cm) PWd1.0 (0.7-1.1cm)Aortic Cusp Exc.1.6 (1.5-2.0cm) IVSs1.5 cm LVDs3.6 (2.5-4.0cm) PWs1.6 cm Normal left ventricular chamber size, systolic function and wall motion . Left ventricular ejection fraction estimated to be 60-65%. No left ventricular hypertrophy . All other cardiac chamber sizes are within normal limits. Focal aortic valve sclerosis with adequate cusp excursion. Thickened mitral valve leaflets with normal excursion. Mitral annulus and aortic root calcification. Normal pulmonic valve structure. Normal tricuspid valve structure. IVC at 1.7 cm with physiologic collapse . A color flow and spectral Doppler study was performed and revealed: No aortic regurgitation.. Trace mitral regurgitation. Mitral diastolic velocities suggest reduced left ventricular relaxation c/w mild LV diastolic dysfunction (Grade I ) Mild tricuspid regurgitation. Tricuspid systolic velocities suggests peak right ventricular systolic pressure of 30mmHg,.
== END 2018-12-20 18:20 | disposition home or self-care (01) | DRG 392 ==
LOC: EMR 12:16 → EDBEDREQ 13:59 → 2W 14:34 → 2E 22:05
DX: R13.10 Dysphagia, unspecified (principal); K22.2 Esophageal obstruction; R55 Syncope and collapse; E11.319 Type 2 diabetes mellitus with unspecified diabetic retinopathy without macular edema; E87.6 Hypokalemia; E66.9 Obesity, unspecified; I27.20 Pulmonary hypertension, unspecified; R12 Heartburn; I10 Essential (primary) hypertension; G47.33 Obstructive sleep apnea (adult) (pediatric); G89.29 Other chronic pain; M54.9 Dorsalgia, unspecified; Z86.718 Personal history of other venous thrombosis and embolism; R11.2 Nausea with vomiting, unspecified; Z68.33 Body mass index [BMI] 33.0-33.9, adult
CPT/HCPCS: 36415; 71045; 80048; 80053; 80061; 81003; 82550; 82553; 82962; 83690; 84443; 84484; 85025; 93005; 93306; 93880; 94640; 94664; 96372; 99285; J1815; J8499